=== PATIENT | male | born 1960 | race Hispanic/Latino ===

== ENCOUNTER 2017-11-18 13:19 | Emergency (ER) | payer OTHER ==
[2017-11-18 13:43] VITALS: BP 168/99; PULSE 94; RESP 16; TEMP 98.2; O2SAT 100
--- NOTE | 2017-11-18 13:55 | ED PDOC ---
HPI: General Adult Time Seen by Provider: 11/18/17 13:46 Chief Complaint (Nursing): Med Refill Chief Complaint (Provider): Med Refill History Per: Patient History/Exam Limitations: no limitations Onset/Duration Of Symptoms: Days Current Symptoms Are (Timing): Still Present Additional Complaint(s): 57 year old male presents to the ER requesting medication refill. Patient reports a history of hypertension and has been off medication for three months. Patient requests refill of Lisinopril, 40 mg. He states he recently moved here and has yet to find a primary care physician. Past Medical History Reviewed: Historical Data, Nursing Documentation, Vital Signs Vital Signs: Last Vital Signs Temp 98.2 F 11/18/17 13:42 Pulse 94 H 11/18/17 13:42 Resp 16 11/18/17 13:42 BP 168/99 H 11/18/17 13:42 Pulse Ox 100 11/18/17 14:03 - Medical History PMH: HTN - Family History Family History: States: Unknown Family Hx - Home Medications Home Medications: Ambulatory Orders Medication Instructions Recorded Lisinopril [Zestril] 40 mg PO DAILY #30 tab 11/18/17 - Allergies Allergies/Adverse Reactions: Allergies Allergy/AdvReac Type Severity Reaction Status Date / Time No Known Allergies Allergy Verified 11/18/17 13:40 Review of Systems ROS Statement: Except As Marked, All Systems Reviewed And Found Negative Cardiovascular: Negative for: Chest Pain, Palpitations Respiratory: Negative for: Shortness of Breath Neurological: Negative for: Weakness, Headache, Dizziness Physical Exam - Reviewed Nursing Documentation Reviewed: Yes Vital Signs Reviewed: Yes - Physical Exam Appears: Positive for: Non-toxic, No Acute Distress Head Exam: Positive for: ATRAUMATIC, NORMAL INSPECTION, NORMOCEPHALIC Skin: Positive for: Normal Color, Warm, Dry Eye Exam: Positive for: Normal appearance ENT: Positive for: Normal ENT Inspection Neck: Positive for: Normal, Painless ROM, Supple Cardiovascular/Chest: Positive for: Regular Rate, Rhythm. Negative for: Murmur Respiratory: Positive for: Normal Breath Sounds. Negative for: Accessory Muscle Use, Respiratory Distress Neurologic/Psych: Positive for: Alert, Oriented - ECG O2 Sat by Pulse Oximetry: 100 (RA) Pulse Ox Interpretation: Normal Medical Decision Making Medical Decision Making: Clinical Impression: Medication Refill Upon provider evaluation patient is medically stable, and requires no further treatment in the ED at this time. Patient will be discharged home with Rx for Lisinopril. Counseling was provided and all questions were answered regarding diagnosis and need for follow up with the clinic. There is agreement to discharge plan. Return if symptoms persist or worsen. Scribe Attestation: Documented by Yvette Mejia, acting as a scribe for Stephanie Galeana PA-C Provider Scribe Attestation: All medical record entries made by the Scribe were at my direction and personally dictated by me. I have reviewed the chart and agree that the record accurately reflects my personal performance of the history, physical exam, medical decision making, and the department course for this patient. I have also personally directed, reviewed, and agree with the discharge instructions and disposition. Disposition - Clinical Impression Clinical Impression: Medication refill - Patient ED Disposition Is Patient to be Admitted: No Counseled Patient/Family Regarding: Diagnosis, Need For Followup, Rx Given - Disposition Disposition: Routine/Home Disposition Time: 13:50 Condition: GOOD Prescriptions: Lisinopril [Zestril] 40 mg PO DAILY #30 tab Instructions: Where to Get Help Paying for Your Prescriptions Forms: [employer] ([place])
--- NOTE | 2017-11-18 13:56 | ED PDOC ---
HPI: General Adult Time Seen by Provider: 11/18/17 13:46 Chief Complaint (Nursing): Med Refill Past Medical History Vital Signs: Last Vital Signs Temp 98.2 F 11/18/17 13:42 Pulse 94 H 11/18/17 13:42 Resp 16 11/18/17 13:42 BP 168/99 H 11/18/17 13:42 Pulse Ox 100 11/18/17 13:42 - Home Medications Home Medications: Ambulatory Orders Medication Instructions Recorded Lisinopril [Zestril] 40 mg PO DAILY #30 tab 11/18/17 - Allergies Allergies/Adverse Reactions: Allergies Allergy/AdvReac Type Severity Reaction Status Date / Time No Known Allergies Allergy Verified 11/18/17 13:40 - ECG O2 Sat by Pulse Oximetry: 100 Disposition - Clinical Impression Clinical Impression: Medication refill - Disposition Disposition: Routine/Home Disposition Time: 13:50 Condition: GOOD Prescriptions: Lisinopril [Zestril] 40 mg PO DAILY #30 tab Instructions: Where to Get Help Paying for Your Prescriptions
== END 2017-11-18 14:17 | disposition home or self-care (01) ==
LOC: H.ER 13:19
DX: Z76.0 Encounter for issue of repeat prescription (principal); I10 Essential (primary) hypertension